=== PATIENT | female | born 1970 | race Caucasian/White ===

== ENCOUNTER 2021-02-02 21:27 | Emergency (ER) | payer BC ==
[~2021-02-02] VITALS: Ht 165.1 cm; Wt 77.1 kg
[2021-02-02 21:35] VITALS: BP_SYST 117
[2021-02-02] MEDS ORDERED: LIDOCAINE 1% 10 MG/ML, 20 ML MDV INJ ONE (21:45)
[2021-02-02] MEDS ORDERED: BACITRACIN 1 GM OINT TP ONE (21:45)
[2021-02-02] MEDS ORDERED: DIPH-TET-PERTUS Vaccine 0.5 ML VIAL (ADACEL) I.M. ONE (21:45)
[2021-02-02 21:56] VITALS: BP_SYST 117
== END 2021-02-02 21:56 | disposition home or self-care (01) ==
LOC: SED 21:27
DX: S61.211A Laceration without foreign body of left index finger without damage to nail, initial encounter (principal); F32.9 Major depressive disorder, single episode, unspecified; Z88.8 Allergy status to other drugs, medicaments and biological substances; W25.XXXA Contact with sharp glass, initial encounter; Y93.89 Activity, other specified; Y92.89 Other specified places as the place of occurrence of the external cause; Y99.8 Other external cause status
CPT/HCPCS: 90715; 99283